=== PATIENT | female | born 1985 | race Caucasian/White ===

== ENCOUNTER 2018-03-19 16:58 | Inpatient (IN) | payer OTHER ==
[~2018-03-19 16:58] MED LIST: Bupivacaine/Epinephrine 0.25% 30 ML VIAL ONE; ePHEDrine/0.9% NaCl/PF SYRINGE 50 mg/10 ml ONE
[2018-03-19] MEDS: Lactated Ringer's 1,000 ML IV SCH (17:45)
[2018-03-19] MEDS ORDERED: HYDROcodone/Acetaminophen 5/325 mg Tablet PO PRN ×2 (18:22)
[2018-03-19] MEDS ORDERED: Lidocaine 1% (PF) 30 ML VIAL SC PRN (18:22)
[2018-03-19] MEDS ORDERED: Ondansetron PF 4 MG/2 ML Vial IVP PRN (18:22)
[2018-03-19] MEDS ORDERED: Acetaminophen 500 MG TAB PO PRN (18:22)
[2018-03-19] MEDS ORDERED: Zolpidem Tartrate 5 MG TAB PO PRN (18:22)
[2018-03-19] MEDS ORDERED: Meperidine HCl/PF 25 MG/ML VIAL IM/IV PRN (18:22)
[2018-03-19] MEDS ORDERED: Ibuprofen 800 MG TAB PO PRN (18:22)
[2018-03-19] MEDS ORDERED: Docusate 100 MG CAP PO PRN (18:22)
[2018-03-19] MEDS ORDERED: Promethazine HCl 25 MG/ML VIAL IM PRN (18:22)
[2018-03-19] MEDS ORDERED: Butorphanol Tartrate 1 MG/ML VIAL SLOW IVP PRN (18:22)
[2018-03-19] MEDS ORDERED: NS w/ Oxytocin 10 units 500 ML IV SCH ×2 (18:30)
[2018-03-19 18:34] LABS: Hemoglobin 12.7 g/dL (12.0-16.0); Mean Corpuscular HGB CONC 34.5 g/dL (32.0-36.0); Mean Corpuscular Hemoglobin 33.1 pg (27.0-31.0); Mean Platelet Volume 8.3 fL (7.4-10.4); Platelet Count 195 thou/uL (130-400); RBC Distribution Width 12.1 % (11.5-14.5); Red Blood Cell (RBC) Count 3.85 mill/uL (4.20-5.40); White Blood Cell (WBC) Count 7.5 thou/uL (4.8-10.8)
[2018-03-19 18:48] VITALS: BMI 22.8
[2018-03-19 19:10] LABS: Syphilis Antibody Nonreactive (Nonreactive); Syphilis Antibody Index 0.03 S/CO (<1.00 Non-Reactive)
[2018-03-19 19:11] LABS: HBSAg Index 0.21 S/CO (0-0.99); Hep B Surf Ag Non-Reactive S/CO (NonReactive)
--- NOTE | 2018-03-19 19:11 | PDOC.LDHP ---
Labor and Delivery H&P Chief complaint: scheduled induction HPI: Pt is a 32yo @ 40.2 weeks here for scheduled IOL and desiring TOLAC. Hx of CS for NRFHT @ 8cm. Current gestational age (weeks): 40 Due date: 03/17/18 Grav: 2 Para: 1 OB History Details: CS for NRFHT @ 8cm in 2015, 9# Current complications: none Abnormal US findings: No Current medications: pre- vitamins Previous surgical history: low tranverse CS Allergies/Adverse Reactions: Allergies Allergy/AdvReac Type Severity Reaction Status Date / Time No Allergy Information Allergy Verified 03/19/18 18:47 Available Social history: none - Physical Exam Vital signs reviewed and normal: yes General: NAD Heart: RRR Lungs: CTAB Abdomen: gravid Extremeties: no edema FHT: category 1 - Vaginal Exam cm dilated: 1 Effacement: 50% Station: -2 - OB Labs RPR: negative HEPSAg: negative GBS: negative - Assessment L&D Assessment: medically indicated induction - Plan Plan: admit to L&D, cervical ripening, informed consent obtained, anesthesia consult for pain management -: A/P: 32yo @ 40.2 w Cook Balloon placed on admit exam. FHT reassuring, pt aware of risk and benefits of TOLAC w spont labor vs w IOL as well as risk and benefits of scheduled RCS. Discussed possible addition of low dose pitocin after balloons fully filled if no contractions noted.
[2018-03-20] MEDS ORDERED: Fentanyl 4 mcg/Bup 0.1% Cadd 100 ML ONE ×2 (01:15→08:51)
[2018-03-20] MEDS: Lactated Ringer's 1,000 ML IV SCH ×3 (01:26→12:30)
[2018-03-20] MEDS ORDERED: Lidocaine 1.5%/Epinephrine 1:200,000 5 ML AMPUL IJ ONE (01:36)
[2018-03-20] MEDS ORDERED: ePHEDrine/0.9% NaCl/PF SYRINGE 50 mg/10 ml SLOW IVP PRN (02:07)
[2018-03-20] MEDS ORDERED: Ondansetron PF 4 MG/2 ML Vial IVP PRN ×2 (02:07→18:26)
[2018-03-20] MEDS ORDERED: Lactated Ringer's 500 ML IV PRN (02:07)
[2018-03-20] MEDS ORDERED: diphenhydrAMINE 50 MG/ML VIAL IVP PRN (02:07)
[2018-03-20] MEDS ORDERED: Promethazine HCl 25 MG/ML VIAL IM PRN ×2 (02:07→18:26)
[2018-03-20] MEDS ORDERED: Acetaminophen 325 MG TAB PO PRN (02:07)
[2018-03-20] MEDS ORDERED: Eucerin (Mineral Oil/Petrolatum,White) 30 gm Jar TOP PRN (02:07)
[2018-03-20] MEDS ORDERED: Naloxone HCl 0.4 mg/ml Vial IVP PRN ×2 (02:07)
[2018-03-20] MEDS ORDERED: Fentanyl 4 mcg/Bupivacaine 0.1% Cassette 100 ML EPIDURAL SCH (02:15)
[2018-03-20] MEDS ORDERED: Communication Order-Pharmacy FS SCH (02:15)
--- NOTE | 2018-03-20 09:04 | PDOC.LDPN ---
Labor & Delivery Progress Note - Subjective Subjective: comfortable - Objective Vital signs reviewed and normal: yes General: resting Dilation: 6 Effacement: 75% Station: 1+ FHT: category 1 AROM: bloody fluid IUPC placed: yes - Assessment (1) 40 weeks gestation of Code(s): Z3A.40 - 40 WEEKS GESTATION OF Current Visit: Yes Status : Acute (2) Previous section Code(s): Z98.891 - HISTORY OF UTERINE SCAR FROM PREVIOUS SURGERY Current Visit : Yes Status: Acute Plan: continue plan of care -: A?P: sp Cook balloon, FHT reassuring w pitocin off/cat 1. IUPC in place with regular contractions noted. Continue close monitoring.
--- NOTE | 2018-03-20 13:18 | PDOC.LDPN ---
Labor & Delivery Progress Note - Subjective Subjective: comfortable - Objective Vital signs reviewed and normal: yes General: resting Dilation: 100 Effacement: 100% Station: 2+ FHT: category 1, variable decelerations - Assessment (1) 40 weeks gestation of Code(s): Z3A.40 - 40 WEEKS GESTATION OF Current Visit: Yes Status : Acute (2) Previous section Code(s): Z98.891 - HISTORY OF UTERINE SCAR FROM PREVIOUS SURGERY Current Visit : Yes Status: Acute Plan: continue plan of care -: Transitioning to 2nd stage. Pain well controlled w epidural.
[2018-03-20] MEDS: NS / Oxytocin 40 units/1000ml 1,000 ML IV PRN ×2 (13:45→16:00)
--- NOTE | 2018-03-20 14:10 | PDOC.OPDEL ---
OB Operative/Delivery Note Delivery Dr/Surgeon: Chad Pre-Delivery Diagnosis: elective induction (40.3 weeks) Weeks gestation: 40 - Findings A Sex: female - 1 min: 5 - 5 min: 9 - Additional Findings/Plan Placenta delivered: spontaneous Repaired Obstetrical Laceration: vaginal (bilateral sulcal/labial inferior U shaped tear)) Estimated blood loss: 500--600ml Post delivery plan: routine recovery
[2018-03-20 14:59] LABS: Analyzer IN Cardio OR; Base Excess (BEa) -3.6 mEq/L (-2.0 to +3.0)
[2018-03-20 15:00] LABS: Actual Bicarbonate (HCO3a) 25.2 mEq/L (22-28)
[2018-03-20] MEDS ORDERED: Bisacodyl 10 MG SUPP PR PRN (18:26)
[2018-03-20] MEDS ORDERED: NS / Oxytocin 40 units/1000ml 1,000 ML IV SCH (18:26)
[2018-03-20] MEDS ORDERED: Benzocaine/Menthol 20-0.5% 60 ML CAN TOP PRN (18:26)
[2018-03-20] MEDS ORDERED: Milk Of Magnesia 30 ML UDCUP PO PRN (18:26)
[2018-03-20] MEDS ORDERED: diphenhydrAMINE 25 MG CAP PO PRN (18:26)
[2018-03-20] MEDS ORDERED: Preparation H Ointment 28 GM TUBE PR PRN (18:26)
[2018-03-20] MEDS ORDERED: Lanolin Ointment 7 GM TUBE TOP PRN (18:26)
[2018-03-20] MEDS: Ibuprofen 800 MG TAB PO SCH (19:41)
[2018-03-20] MEDS: Docusate Calcium (SURFAK) 240 MG CAP PO SCH (19:41)
[2018-03-21] MEDS: HYDROcodone/Acetaminophen 5/325 mg Tablet PO PRN ×6 (00:43→21:45)
[2018-03-21] MEDS: Ibuprofen 800 MG TAB PO SCH ×3 (04:59→21:45)
[2018-03-21 07:14] LABS: Hemoglobin 6.8 g/dL (12.0-16.0); Mean Corpuscular HGB CONC 34.1 g/dL (32.0-36.0); Mean Corpuscular Hemoglobin 33.5 pg (27.0-31.0); Mean Corpuscular Volume 98.1 fL (78.0-98.0); Mean Platelet Volume 7.5 fL (7.4-10.4); Platelet Count 133 thou/uL (130-400); RBC Distribution Width 12.1 % (11.5-14.5); Red Blood Cell (RBC) Count 2.03 mill/uL (4.20-5.40); White Blood Cell (WBC) Count 10.8 thou/uL (4.8-10.8)
--- NOTE | 2018-03-21 08:51 | PDOC.PP ---
Post Progress Note Post Day #: 1 Subjective: Nursing well, mild pain in perineum, min lochia, no SOB/CP or dizziness noted PO intake tolerated: yes Flatus: yes Ambulation: yes Vital Signs (12 hours) Temp Pulse Resp BP Pulse Ox 03/21/18 07:20 97.6 F 93 16 98/50 L 98 03/21/18 04:55 97.6 F 101 H 18 106/54 L 03/21/18 00:35 97.8 F 101 H 18 114/53 L Weight Weight 129 lb - Physical Examination General: NAD Respiratory: non-labored breathing Abdominal: no distention Fundus firm & at: below umb Skin: no rash Neurological: no gross focal deficits Psychiatric: A&Ox3, normal affect Result Diagrams: 03/21/18 06:43 Additional Labs: Post Labs Blood Type O POSITIVE 03/19/18 17:45 Hep Bs Antigen Non-Reactive S/CO (NonReactive) 03/19/18 17:45 (1) 40 weeks gestation of Code(s): Z3A.40 - 40 WEEKS GESTATION OF Status: Acute (2) Previous section Code(s): Z98.891 - HISTORY OF UTERINE SCAR FROM PREVIOUS SURGERY Status: Acute - Assessment/Plan PPD1 doing well, s/p , asx anemia. Discussed that anemia due to increased blood loss with vaginal tear yesterday (bilateral sulcal/2nd degree). Care of perineum reviewed. Si/sx of anemia reviewed in detail. Poss DC tomorrow.
[2018-03-21] MEDS ORDERED: Measles/Mumps/Rubella 10 MCG/0.5 ML VIAL SC ONE (09:00)
[2018-03-21] MEDS ORDERED: Adacel (T-DAP) 0.5 ML SYRINGE IM ONE (09:00)
[2018-03-21] MEDS: Ferrous Sulfate 325 MG TAB PO SCH ×2 (09:06→17:57)
[2018-03-21] MEDS: Docusate Calcium (SURFAK) 240 MG CAP PO SCH ×2 (09:07→21:44)
[2018-03-21] MEDS: Prenatal Vitamin 1 TAB PO SCH (09:07)
[2018-03-22] MEDS: Ibuprofen 800 MG TAB PO SCH ×2 (05:07→13:23)
[2018-03-22 08:00] VITALS: BP 99/54; TEMP 98.1
[2018-03-22] MEDS: Docusate Calcium (SURFAK) 240 MG CAP PO SCH (08:24)
[2018-03-22] MEDS: Ferrous Sulfate 325 MG TAB PO SCH (08:24)
[2018-03-22] MEDS: Prenatal Vitamin 1 TAB PO SCH (08:24)
--- NOTE | 2018-03-22 08:47 | PDOC.PP ---
Post Progress Note Post Day #: 2 Subjective: ,min discomfort, no SOB or dizziness, doing well, no concerns PO intake tolerated: yes Flatus: yes Ambulation: yes Vital Signs (12 hours) Temp Pulse Resp BP Pulse Ox 03/22/18 08:00 98.1 F 94 20 99/54 L 100 03/22/18 05:09 88 Weight Weight 129 lb - Physical Examination General: NAD Respiratory: non-labored breathing Abdominal: no distention Fundus firm & at: below umb Extremities: negative homans (B) Skin: no rash Psychiatric: A&Ox3, normal affect Result Diagrams: 03/21/18 06:43 Additional Labs: Post Labs Blood Type O POSITIVE 03/19/18 17:45 Hep Bs Antigen Non-Reactive S/CO (NonReactive) 03/19/18 17:45 (1) 40 weeks gestation of Code(s): Z3A.40 - 40 WEEKS GESTATION OF Status: Acute (2) Previous section Code(s): Z98.891 - HISTORY OF UTERINE SCAR FROM PREVIOUS SURGERY Status: Acute - Assessment/Plan A/P: PPD2 doing well, no concerns, si/sx of anemia reviewed and pt asymptomatic. Iron supplement and hydration reviewed, plan for DC today.
[2018-03-22] MEDS: HYDROcodone/Acetaminophen 5/325 mg Tablet PO PRN (10:23)
== END 2018-03-22 15:00 | disposition home or self-care (01) | DRG 806 ==
LOC: L&D 16:58 → 3SW 03-20 18:26
PROVIDERS: ADMIT Obstetrics & Gynecology; ATTEND Obstetrics & Gynecology
PROC: 10E0XZZ Delivery of Products of Conception, External Approach (ICD-10-PCS; principal; 2018-03-20)
PROC: 0KQM0ZZ Repair Perineum Muscle, Open Approach (ICD-10-PCS; 2018-03-20)
PROC: 0UQGXZZ Repair Vagina, External Approach (ICD-10-PCS; 2018-03-20)
PROC: 3E0234Z Introduction of Serum, Toxoid and Vaccine into Muscle, Percutaneous Approach (ICD-10-PCS; 2018-03-22)
DX: O48.0 Post-term pregnancy (principal); D62 Acute posthemorrhagic anemia; Z37.0 Single live birth; O99.02 Anemia complicating childbirth; Z3A.40 40 weeks gestation of pregnancy; O70.1 Second degree perineal laceration during delivery; Z23 Encounter for immunization
CPT/HCPCS: 36415; 51702; 82805; 85027; 86780; 86850; 86900; 86901; 87340; 90707; J2001; J3490